=== PATIENT | male | born 1995 | race Two or more races ===

== ENCOUNTER 2024-09-29 16:17 | Emergency (ER) | payer BC, SELFPAY ==
[2024-09-29 16:46] VITALS: BP 126/73; PULSE 58; RESP 16; TEMP 37; O2SAT 97; BMI 34.7
--- NOTE | 2024-09-29 16:58 | XR_ITS ---
Examination: Left hip 2 views Technique: AP pelvis lateral left hip 2 views Exam date and time: September 29, 2024 1702 hrs. Indications: Running injury with left hip pain today Findings: No left hip fracture or dislocation Right hip bones of the pelvis intact Impression: No acute hip or pelvic fracture
--- NOTE | 2024-09-29 17:03 | PD.EDLOWEX ---
Lower Extremity Injury RME/HPI General Chief Complaint: Extremity Injury, Lower Stated Complaint: LEFT QUAD INJURY / PAIN Time Seen by Provider: 09/29/24 16:38 Source: patient Arrival date/time: 09/29/24 16:17 29-year-old healthy young man presents to the emergency department with complaints of left hip pain that radiates to his frontal quad muscle status post running. Patient reports he is in the [employer] and is in his physical fitness class where he runs every morning a couple miles a day. He noticed that today he began to have pain in the hip extending to his quad prompting his ED visit today. Patient requesting a note for his physical activity during the police accompany. Mode of arrival: ambulatory Limitations: no limitations Related Data Previous Rx's ?Medication ?Instructions ?Recorded ibuprofen 800 mg tablet (IBU) 800 mg PO Q8H #20 tabs 09/29/24 Allergies Allergy/AdvReac Type Severity Reaction Status Date / Time No Known Allergies Allergy Verified 09/29/24 16:18 Review of Systems Review of Systems Systems Reviewed: All systems reviewed, normal except as documented Narrative Review of Systems: Gen: No fever, no chills, no weight loss EYES: No discharge, no visual changes, no pain HEENT: No ear pain, no congestion, no sore throat PULM: No shortness of breath, no cough, no congestion CV: No chest pain, no dyspnea on exertion, no palpitations GI: No nausea, no vomiting, no diarrhea, no pain, no constipation : No frequency, no urgency,? no dysuria Musc/skel: left hip pain, no back pain Skin: No rash? ED Exam General Limitations: Present no limitations General appearance: Present alert and in no apparent distress Head Head exam: Present atraumatic Eye Eye exam: Present normal appearance, PERRL and EOMI ENT ENT exam: Present normal exam, normal oropharynx and mucous membranes moist Neck Neck exam: Present normal inspection, full ROM and trachea midline Chest Chest inspection: Present normal inspection and symmetric chest wall rise Respiratory Respiratory exam: Present normal lung sounds bilaterally Cardiovascular Cardiovascular exam: Present regular rate, normal rhythm and normal heart sounds Abdominal Exam Abdominal exam: Present soft and normal bowel sounds Extremities Exam Extremities exam: Present normal inspection and full ROM Back Exam Back exam: Present normal inspection and full ROM Neurological Exam Neurological exam: Present alert, oriented X3 and CN II-XII intact Psychiatric Psychiatric exam: Present normal affect and normal mood Skin Skin exam: Present warm, dry, intact and normal color Course Quality Measures none Orders Category Date Time Status XR hip LT 1V Stat Exams 09/29/24 16:58 Completed Ibuprofen Tab [Motrin Tab] Med 09/29/24 16:59 Discontinued 800 mg PO X1 ONE Vital Signs Vital signs: Vital Signs Temperature 98.6 F 09/29/24 16:46 Pulse Rate 58 L 09/29/24 16:46 Respiratory Rate 16 09/29/24 16:46 Blood Pressure 126/73 09/29/24 16:46 Pulse Oximetry (%) 97 09/29/24 16:46 Oxygen Delivery Method Room Air 09/29/24 16:46 Extremity Injury, Lower MDM Narrative MDM Narrative:: 29-year-old male history of increased physical activity and running complaints of left hip pain status post running. Hip x-ray completely normal. Most likely hip strain. Advised slow movements and stretching no running for 1-2 week. Follow-up with his PCP. Patient data External records reviewed:: [facility] previous records Clinical information provided by:: patient Social determinants that could affect healthcare access:: none Patient has the following chronic illnesses:: no How is presenting disease/condition affected by chronic disease/condition?: no chronic disease Evaluation data The following diagnostics were reviewed and interpreted by me:: radiology exam(s) Lab and/or radiology exams considered but not ordered:: no Interpretation Summary: Examination: Left hip 2 views Technique: AP pelvis lateral left hip 2 views Exam date and time: September 29, 2024 1702 hrs. Indications: Running injury with left hip pain today Findings: No left hip fracture or dislocation Right hip bones of the pelvis intact Impression: No acute hip or pelvic fracture Medications / Prescriptions Medications or Prescriptions considered but not ordered:: no Medication administrations:: Medication Administration History Discontinued Medications Ibuprofen (Ibuprofen Tab 400 Mg Tablet) 800 mg PO X1 ONE Stop: 09/29/24 17:00 Last Admin: 09/29/24 17:44 Dose: 800 mg Documented By: All medications administered and effective Consultations Consultation(s) initiated? (list below): No Diagnosis Most likely diagnosis given after review of the tests above:: Left hip strain Admission Indicated Admission indicated?: indicated Admission Request Was there a request for admission?: No Disposition Plan Disposition Plan: Discharge Discharge Attestation Discharge Attestation: The patient and all family members were given an opportunity to ask questions and understood the discharge instructions. Discharge instructions specifically effects, indications for sooner follow up or return to the emergency department, and the expected course of current diagnosis. Patient condition: Stable Discharge Plan Plan Patient Disposition: HOME (Self Care) Patient condition on transfer: Stable Prescriptions/Referrals Prescriptions/Med Rec: New ibuprofen [IBU] 800 mg tablet 800 mg PO Q8H Qty: 20 0RF Problem List Clinical Impression: Muscle strain of left hip Patient/Caregiver Discharge Instructions Discharge Activity: activity as tolerated Education Materials: ED Hip Strain Additional Instructions: - You will need to refrain from long distance running for least 2 weeks. -Please remember to do good hip stretches and stretching before runs -Follow-up with your primary doctor 48 hrs for follow up care Return to ER if any worsening symptoms or change in condition. Print Language: Albanian Stand Alone Forms: Raeann Award Info., Work/School Release, Patient Portal Info Letter PA/KANDI Supervising Physician MAURICIO/KANDI Supervising Physician: Dr Hope
[2024-09-29] MEDS: IBUPROFEN TAB 400 MG TABLET 800 MG PO (17:44)
== END 2024-09-29 19:42 | disposition home or self-care (01) ==
PROVIDERS: Emergency Provider Emergency Medicine
DX: S76.012A Strain of muscle, fascia and tendon of left hip, initial encounter (principal); X58.XXXA Exposure to other specified factors, initial encounter
CPT/HCPCS: 73501; 99283; A9270